=== PATIENT | male | born 1940 | race Caucasian/White ===

== ENCOUNTER 2018-03-18 08:46 | Inpatient (IN) | payer MEDICARE, MEDICAID ==
[2018-03-18 09:22] LABS: ADD MAN DIFF? NO
[2018-03-18 09:24] LABS: ABNORMAL IP MESSAGE 1; BASOPHIL # 0.1 10^3/ul (0.0-0.1); BASOPHILS % 0.3 % (0.0-2.0); HEMATOCRIT 45.8 % (42.0-52.0); HEMOGLOBIN 15.4 g/dl (14.0-18.0); LYMPHOCYTES # 0.8 10^3/ul (0.8-2.9); LYMPHOCYTES % 3.5 % (15.0-51.0); MEAN CORPUSCULAR HEMOGLOBIN 28.9 pg (29.0-33.0); MEAN CORPUSCULAR HGB CONC 33.6 g/dl (32.0-37.0); MEAN CORPUSCULAR VOLUME 86.1 fl (82.0-101.0); MEAN PLATELET VOLUME 9.9 fl (7.4-10.4); MONOCYTE # 0.9 10^3/ul (0.3-0.9); MONOCYTES % 3.9 % (0.0-11.0); NEUTROPHIL # 21.2 10^3/ul (1.6-7.5); NEUTROPHILS % 91.1 % (39.0-77.0); PLATELET COUNT 232 10^3/UL (140-415); POSITIVE DIFF @See below; RED BLOOD COUNT 5.32 10^6/ul (4.70-6.10); RED CELL DISTRIBUTION WIDTH 13.2 % (11.5-14.5)
[2018-03-18 09:24] LABS: WHITE BLOOD COUNT 23.3 10^3/ul (4.8-10.8)
[2018-03-18] MEDS: ONDANSETRON 4 MG INJ IV (09:29)
[2018-03-18] MEDS: CEFEPIME 2GM/50 ML (PMX) 50 ML IVPB (09:30)
[2018-03-18] MEDS: SODIUM CHLORIDE 0.9% 1L BAG IV* (09:30)
[2018-03-18 09:35] LABS: ADD UMIC YES; UR ASCORBIC ACID NEGATIVE (NEGATIVE); UR BILIRUBIN (Dip) 1+ mg/dL (NEGATIVE); UR BLOOD (Dip) 1+ mg/dL (NEGATIVE); UR CLARITY CLEAR (CLEAR); UR COLOR AMBER (YELLOW); UR GLUCOSE (Dip) 1+ mg/dL (NEGATIVE); UR KETONES (Dip) NEGATIVE (NEGATIVE); UR LEUKOCYTE ESTERASE (Dip) NEGATIVE Leu/ul (NEGATIVE); UR NITRITE (Dip) NEGATIVE (NEGATIVE); UR RBC 23 /HPF (0-5); UR SPECIFIC GRAVITY (Dip) 1.014 (1.003-1.030); UR TOTAL PROTEIN (Dip) 1+ mg/dl (NEGATIVE); UR UROBILINOGEN (Dip) 2+ mg/dL (NEGATIVE); UR WBC 1 /HPF (0-5)
[2018-03-18 09:42] LABS: ANION GAP 11 (5-13); BLOOD UREA NITROGEN 14 mg/dl (7-20); CALCIUM 9.5 mg/dl (8.4-10.2); CARBON DIOXIDE 25 mmol/L (21-31); CHLORIDE 105 mmol/L (97-110); CREATININE 1.47 mg/dl (0.61-1.24); GLUCOSE 193 mg/dl (70-220); POTASSIUM 4.5 mmol/L (3.5-5.1); SODIUM 141 mmol/L (135-144)
[2018-03-18 09:54] LABS: TROPONIN-I 0.017 ng/ml (0.000-0.120)
[2018-03-18 10:28] LABS: INR 1.12; PROTIME 14.6 Sec (11.9-14.9); PT RATIO 1.1
[2018-03-18 10:29] LABS: PARTIAL THROMBOPLASTIN TIME 21.9 Sec (23.0-35.0)
[2018-03-18] MEDS: VANCOMYCIN 1 GM (PMX) 250 ML IVPB (10:29)
[2018-03-18] MEDS ORDERED: ONDANSETRON 4 MG INJ IV (10:30)
[2018-03-18] MEDS: ACETAMINOPHEN 500 MG TAB PO (10:30)
[2018-03-18] MEDS ORDERED: ACETAMINOPHEN 325 MG TAB PO (10:30)
[2018-03-18] MEDS ORDERED: NACL 0.9% 3 ML SYG IV (13:00)
[2018-03-18] MEDS ORDERED: HYDROCODONE/APAP (5/325) TAB PO (13:00)
[2018-03-18] MEDS: AMLODIPINE 5 MG TAB PO (14:13)
[2018-03-18 15:11] LABS: TROPONIN-I 0.025 ng/ml (0.000-0.120)
[2018-03-18 15:23] LABS: LACTIC ACID 2.5 mmol/L (0.5-2.0)
[2018-03-18] MEDS: PANTOPRAZOLE (EC) 40 MG TAB PO (17:43)
[2018-03-19 05:22] LABS: ADD MAN DIFF? NO
[2018-03-19 05:29] LABS: BASOPHIL # 0.1 10^3/ul (0.0-0.1); BASOPHILS % 0.3 % (0.0-2.0); EOSINOPHILS # 0.1 10^3/ul (0.0-0.5); EOSINOPHILS % 0.4 % (0.0-7.0); HEMATOCRIT 42.3 % (42.0-52.0); LYMPHOCYTES # 1.7 10^3/ul (0.8-2.9); MEAN CORPUSCULAR HGB CONC 33.1 g/dl (32.0-37.0); MEAN CORPUSCULAR VOLUME 87.6 fl (82.0-101.0); MEAN PLATELET VOLUME 9.7 fl (7.4-10.4); MONOCYTE # 1.2 10^3/ul (0.3-0.9); MONOCYTES % 6.5 % (0.0-11.0); NEUTROPHIL # 15.3 10^3/ul (1.6-7.5); NEUTROPHILS % 82.9 % (39.0-77.0); PLATELET COUNT 200 10^3/UL (140-415); RED BLOOD COUNT 4.83 10^6/ul (4.70-6.10); RED CELL DISTRIBUTION WIDTH 13.2 % (11.5-14.5)
[2018-03-19 05:29] LABS: WHITE BLOOD COUNT 18.5 10^3/ul (4.8-10.8)
[2018-03-19] MEDS: PANTOPRAZOLE (EC) 40 MG TAB PO ×2 (05:54→17:55)
[2018-03-19 06:12] LABS: ALANINE AMINOTRANSFERASE 362 IU/L (13-69); ALBUMIN 3.8 g/dl (3.3-4.9); ALBUMIN/GLOBULIN RATIO 1.18; ALKALINE PHOSPHATASE 104 IU/L (42-121); ANION GAP 10 (5-13); ASPARTATE AMINO TRANSFERASE 415 IU/L (15-46); BILIRUBIN,INDIRECT 1.3 mg/dl (0-1.1); BILIRUBIN,TOTAL 3.6 mg/dl (0.2-1.3); BLOOD UREA NITROGEN 15 mg/dl (7-20); CALCIUM 9.1 mg/dl (8.4-10.2); CARBON DIOXIDE 27 mmol/L (21-31); CHLORIDE 108 mmol/L (97-110); CREATININE 1.46 mg/dl (0.61-1.24); GLUCOSE 207 mg/dl (70-220); POTASSIUM 3.5 mmol/L (3.5-5.1); SODIUM 145 mmol/L (135-144)
[2018-03-19 08:30] LABS: HEMOGLOBIN A1C 6.9 % (0-5.9)
[2018-03-19] MEDS: ASPIRIN 81 MG TAB PO (08:51)
[2018-03-19] MEDS: CLOPIDOGREL 75 MG TAB PO (08:51)
[2018-03-19] MEDS: AMLODIPINE 5 MG TAB PO (08:51)
[2018-03-19] MEDS: ENOXAPARIN 30 MG/0.3 ML SYG SC (08:55)
[2018-03-19] MEDS: ONDANSETRON 4 MG INJ IV (11:40)
[2018-03-19] MEDS ORDERED: VANCOMYCIN IV PER PHARMACY XX (12:00)
[2018-03-19 12:48] LABS: B-TYPE NATRIURETIC PEPTIDE 1040 PG/ML (0-450)
[2018-03-19] MEDS: PIPER-TAZO 3.375 GM IV (PMX) 100 ML IVPB ×2 (13:13→21:31)
[2018-03-19 13:47] LABS: TROPONIN-I 0.015 ng/ml (0.000-0.120)
[2018-03-19] MEDS: VANCOMYCIN 1.5 GM in SOD CHLORIDE 0.9% 250 ML IVPB (14:30)
[2018-03-19] MEDS: FUROSEMIDE 20 MG INJ IV (15:26)
[2018-03-20] MEDS: PIPER-TAZO 3.375 GM IV (PMX) 100 ML IVPB ×2 (05:02→14:05)
[2018-03-20] MEDS: FUROSEMIDE 20 MG INJ IV (05:02)
[2018-03-20] MEDS: PANTOPRAZOLE (EC) 40 MG TAB PO (05:02)
[2018-03-20 05:53] LABS: ADD MAN DIFF? NO; HAAIG REFLEX REFLEX FILED
[2018-03-20 06:00] LABS: BASOPHILS % 0.2 % (0.0-2.0); HEMATOCRIT 40.8 % (42.0-52.0); HEMOGLOBIN 13.7 g/dl (14.0-18.0); LYMPHOCYTES # 1.6 10^3/ul (0.8-2.9); LYMPHOCYTES % 9.1 % (15.0-51.0); MEAN CORPUSCULAR HEMOGLOBIN 28.8 pg (29.0-33.0); MEAN CORPUSCULAR HGB CONC 33.6 g/dl (32.0-37.0); MEAN CORPUSCULAR VOLUME 85.9 fl (82.0-101.0); MEAN PLATELET VOLUME 10.4 fl (7.4-10.4); MONOCYTES % 5.6 % (0.0-11.0); NEUTROPHIL # 15.2 10^3/ul (1.6-7.5); NEUTROPHILS % 84.4 % (39.0-77.0); PLATELET COUNT 195 10^3/UL (140-415); RED BLOOD COUNT 4.75 10^6/ul (4.70-6.10); RED CELL DISTRIBUTION WIDTH 13.1 % (11.5-14.5)
[2018-03-20 06:29] LABS: ALANINE AMINOTRANSFERASE 252 IU/L (13-69); ALBUMIN 3.8 g/dl (3.3-4.9); ALBUMIN/GLOBULIN RATIO 1.26; ALKALINE PHOSPHATASE 101 IU/L (42-121); ANION GAP 14 (5-13); ASPARTATE AMINO TRANSFERASE 148 IU/L (15-46); BLOOD UREA NITROGEN 21 mg/dl (7-20); CALCIUM 9.2 mg/dl (8.4-10.2); CARBON DIOXIDE 28 mmol/L (21-31); CHLORIDE 101 mmol/L (97-110); CREATININE 1.41 mg/dl (0.61-1.24); GLUCOSE 256 mg/dl (70-220); SODIUM 143 mmol/L (135-144); TOTAL PROTEIN 6.8 g/dl (6.1-8.1)
[2018-03-20 06:51] LABS: HEPATITIS B SURFACE ANTIGEN NEGATIVE (NEGATIVE)
[2018-03-20 07:09] LABS: HEPATITIS B CORE ANTIBODY NEGATIVE (NEGATIVE); HEPATITIS C VIRAL ANTIBODY NEGATIVE (NEGATIVE)
[2018-03-20] MEDS: CLOPIDOGREL 75 MG TAB PO (08:41)
[2018-03-20] MEDS: AMLODIPINE 5 MG TAB PO (08:41)
[2018-03-20] MEDS: ASPIRIN 81 MG TAB PO (08:41)
[2018-03-20] MEDS: ENOXAPARIN 30 MG/0.3 ML SYG SC (08:48)
[2018-03-20] MEDS: VANCOMYCIN 1 GM 250 ML IVPB (12:32)
[2018-03-20] MEDS: POTASSIUM CHLORIDE (SR) 20 MEQ TAB PO ×2 (12:32→16:10)
== END 2018-03-20 16:31 | DRG 872 ==
LOC: E/R 08:46 → 6WM 10:15
DX: A41.9 Sepsis, unspecified organism (principal); A08.4 Viral intestinal infection, unspecified; I11.0 Hypertensive heart disease with heart failure; I50.9 Heart failure, unspecified; I69.320 Aphasia following cerebral infarction
CPT/HCPCS: 36415; 71045; 76705; 80048; 80053; 81001; 83036; 83605; 83880; 84484; 85025; 85610; 85730; 86704; 86709; 86803; 87040; 87086; 87340; 87400; 93005; 93306; 96374; 96375; 99291-25